=== PATIENT | female | born 1975 | race Caucasian/White ===

== ENCOUNTER 2018-08-08 17:50 | Emergency (ER) | payer MEDICAID ==
[2018-08-08] MEDS ORDERED: NS 1,000 ML IV ONE (18:06)
--- NOTE | 2018-08-08 18:16 | EDPHY ---
H & P Stated Complaint: rapid HR, jittery, jaundice Time Seen by Provider: 08/08/18 17:59 HPI/ROS: CHIEF COMPLAINT: Jittery, jaundice, palpitations HISTORY OF PRESENT ILLNESS: Patient is a 43-year-old female who comes to the emergency department complaining of feeling jittery and having palpitations and says she looks jaundice. She reports that about 6 months ago in [place] she was diagnosed with D Fragilis and was treated with a course of Flagyl. She states that when she took the antibiotics it made her feel jittery and anxious so she eventually stop taking them. She then noticed that she was having that reaction with any medication she took even multi vitamins. She is now off of all medications. She states that today she began feeling this way even without taking any medications. She reports that a few months ago when she noticed the jaundice and has slightly elevated liver tests she had an MRI of her abdomen that they told her was completely normal. She is not a heavy drinker. She denies abdominal pain. She feels slightly nauseous but no vomiting. No history of cardiac or pulmonary disease. Severity: Moderate Modifying factors: None REVIEW OF SYSTEMS: Constitutional: denies: chills, fever, recent illness, recent injury EENTM: denies: blurred vision, double vision, nose congestion Respiratory: denies: cough, shortness of breath Cardiac: denies: chest pain, irregular heart rate, lightheadedness, palpitations Gastrointestinal/Abdominal: See HPI Genitourinary: denies: dysuria, frequency, hematuria, pain Musculoskeletal: denies: joint pain, muscle pain Skin: denies: lesions, rash, jaundice, bruising Neurological: denies: headache, numbness, paresthesia, tingling, dizziness, weakness Hematologic/Lymphatic: denies: blood clots, easy bleeding, easy bruising Immunologic/allergic: denies: HIV/AIDS, transplant 10 systems reviewed and negative except as noted EXAM: GENERAL: Well-appearing, well-nourished and in no acute distress. HEAD: Atraumatic, normocephalic. EYES: Pupils equal round and reactive to light, extraocular movements intact, sclera appears slightly jaundice. ENT: TMs normal, nares patent, oropharynx clear without exudates. Moist mucous membranes. NECK: Normal range of motion, supple without lymphadenopathy or JVD. LUNGS: Breath sounds clear to auscultation bilaterally and equal. No wheezes rales or rhonchi. HEART: Regular rate and rhythm without murmurs, rubs or gallops. ABDOMEN: Soft, nontender, normoactive bowel sounds. No guarding, no rebound. No masses appreciated. BACK: No CVA tenderness, no spinal tenderness, step-offs or deformities EXTREMITIES: Normal range of motion, no pitting or edema. No clubbing or cyanosis. NEUROLOGICAL: Cranial nerves II through XII grossly intact. Normal speech, normal gait. 5/5 strength, normal movement in all extremities, normal sensation , normal reflexes PSYCH: Normal mood, normal affect. SKIN: Warm, dry, normal turgor, no visible rashes or lesions. Source: Patient Exam Limitations: No limitations - Personal History Current Tetanus/Diphtheria Vaccine: Yes Current Tetanus Diphtheria and Acellular Pertussis (TDAP): Yes - Medical/Surgical History Hx Asthma: No Hx Chronic Respiratory Disease: No Hx Diabetes: No Hx Cardiac Disease: No Hx Renal Disease: No Hx Cirrhosis: No Hx Alcoholism: No Hx HIV/AIDS: No Hx Splenectomy or Spleen Trauma: No Other PMH: asthma, - Family History Significant Family History: No pertinent family hx - Social History Smoking Status: Former smoker Alcohol Use: None Constitutional: Initial Vital Signs Temperature (C) 37.1 C 08/08/18 17:56 Heart Rate 118 H 08/08/18 17:56 Respiratory Rate 16 08/08/18 17:56 Blood Pressure 158/93 H 08/08/18 17:56 O2 Sat (%) 98 08/08/18 17:56 O2 Delivery Mode Room Air Allergies/Adverse Reactions: No Known Allergies Allergy (Unverified 08/08/18 17:55) Home Medications: Medication Instructions Recorded NK [No Known Home Meds] 08/08/18 Medical Decision Making - Diagnostics EKG Interpretation: An EKG obtained and was read and documented in trace view. Please see trace view for full reading and report. Sinus rhythm, no acute ischemic changes Imaging Results: Imaging Impressions Abdomen Ultrasound 08/08/18 18:06 Impression: 1. A single 4 mm gallbladder polyp. 2. No cholelithiasis or biliary ductal dilation. 3. Hepatic steatosis and mild hepatomegaly without definite focal lesions. 4. No ascites. Findings and recommendations discussed with Emergency Department physician, GURWINDER PICHARDO at 19:38 hour, 08/08/2018. Final report concurs with initial preliminary interpretation. Imaging: Discussed imaging studies w/ equine intern Radiologist ED Course/Re-evaluation: 8:14 p.m. Patient's lab work is completely normal. On re-evaluation she does not appear jaundice but has been tanning. Sclerae are clear in better lighting. She states that this is what always happens. She states that she has the symptoms any time she takes any type of pill or even vitamins or supplements. She has seen her truck bench mechanic and has been drinking celery juice which she thinks may be helping to some degree. She also [facility]. She declines further workup or testing this time and is eager to go home. Differential Diagnosis: Partial list of the Differential diagnosis considered include but were not limited to; anxiety, medication reaction, liver disease and although unlikely based on the history and physical exam, I also considered pancreatitis, biliary stone. I discussed these differential diagnoses and the plan with the patient as well as the usual and expected course. The patient understands that the diagnosis is provisional and that in medicine we are not always correct and that further workup is often warranted. Usual and customary warnings were given. All of the patient's questions were answered. The patient was instructed to return to the emergency department should the symptoms at all worsen or return, otherwise to followup with the physician as we discussed. - Data Points Laboratory Results: Laboratory Results 08/08/18 18:20 08/08/18 18:20 08/08/18 08/08/18 08/08/18 18:59 18:50 18:20 WBC RBC Hgb Hct MCV MCH MCHC RDW Plt Count MPV Neut % (Auto) Lymph % (Auto) [place] % (Auto) Eos % (Auto) Baso % (Auto) Nucleat RBC Rel Count Absolute Neuts (auto) Absolute Lymphs (auto) Absolute Monos (auto) Absolute Eos (auto) Absolute Basos (auto) Absolute Nucleated RBC Immature Gran % Immature Gran # D-Dimer 0.28 ug/mLFEU ug/mLFEU (0.00-0.50) Sodium Potassium Chloride Carbon Dioxide Anion Gap BUN Creatinine Estimated GFR Glucose Calcium Total Bilirubin Conjugated Bilirubin Unconjugated Bilirubin AST ALT Alkaline Phosphatase POC Troponin I 0.00 ng/mL ng/mL (0.00-0.08) Total Protein Albumin Lipase Urine Color COLORLESS Urine Appearance CLEAR Urine pH 7.0 (5.0-7.5) Ur Specific [place] 1.003 (1.002-1.030) Urine Protein NEGATIVE (NEGATIVE) Urine Ketones NEGATIVE (NEGATIVE) Urine Blood NEGATIVE (NEGATIVE) Urine Nitrate NEGATIVE (NEGATIVE) Urine Bilirubin NEGATIVE (NEGATIVE) Urine Urobilinogen NEGATIVE EU EU (0.2-1.0) Ur Leukocyte Esterase NEGATIVE (NEGATIVE) Urine RBC 1-3 /hpf /hpf (0-3) Urine WBC 0-1 /hpf /hpf (0-3) Ur Epithelial Cells TRACE /lpf /lpf (NONE-1+) Urine Glucose NEGATIVE (NEGATIVE) 08/08/18 08/08/18 18:20 18:20 WBC 8.38 10^3/uL 10^3/uL (3.80-9.50) RBC 4.95 10^6/uL 10^6/uL (4.18-5.33) Hgb 11.5 g/dL L g/dL (12.6-16.3) Hct 37.3 % L % (38.0-47.0) MCV 75.4 fL L fL (81.5-99.8) MCH 23.2 pg L pg (27.9-34.1) MCHC 30.8 g/dL L g/dL (32.4-36.7) RDW 16.4 % H % (11.5-15.2) Plt Count 261 10^3/uL 10^3/uL (150-400) MPV 10.9 fL fL (8.7-11.7) Neut % (Auto) 68.1 % % (39.3-74.2) Lymph % (Auto) 25.1 % % (15.0-45.0) [place] % (Auto) 4.9 % % (4.5-13.0) Eos % (Auto) 1.0 % % (0.6-7.6) Baso % (Auto) 0.5 % % (0.3-1.7) Nucleat RBC Rel Count 0.0 % % (0.0-0.2) Absolute Neuts (auto) 5.72 10^3/uL 10^3/uL (1.70-6.50) Absolute Lymphs (auto) 2.10 10^3/uL 10^3/uL (1.00-3.00) Absolute Monos (auto) 0.41 10^3/uL 10^3/uL (0.30-0.80) Absolute Eos (auto) 0.08 10^3/uL 10^3/uL (0.03-0.40) Absolute Basos (auto) 0.04 10^3/uL 10^3/uL (0.02-0.10) Absolute Nucleated RBC 0.00 10^3/uL 10^3/uL (0-0.01) Immature Gran % 0.4 % % (0.0-1.1) Immature Gran # 0.03 10^3/uL 10^3/uL (0.00-0.10) D-Dimer Sodium 137 mEq/L mEq/L (135-145) Potassium 3.8 mEq/L mEq/L (3.5-5.2) Chloride 103 mEq/L mEq/L (97-110) Carbon Dioxide 26 mEq/l mEq/l (22-31) Anion Gap 8 mEq/L mEq/L (6-14) BUN 9 mg/dL mg/dL (7-23) Creatinine 0.8 mg/dL mg/dL (0.6-1.0) Estimated GFR > 60 Glucose 91 mg/dL mg/dL (70-100) Calcium 9.1 mg/dL mg/dL (8.5-10.4) Total Bilirubin 0.2 mg/dL mg/dL (0.1-1.4) Conjugated Bilirubin 0.0 mg/dL mg/dL (0.0-0.5) Unconjugated Bilirubin 0.2 mg/dL mg/dL (0.0-1.1) AST 16 IU/L IU/L (14-46) ALT 16 IU/L IU/L (9-52) Alkaline Phosphatase 72 IU/L IU/L (38-126) POC Troponin I Total Protein 6.8 g/dL g/dL (6.3-8.2) Albumin 4.3 g/dL g/dL (3.5-5.0) Lipase 114 IU/L IU/L (23-300) Urine Color Urine Appearance Urine pH Ur Specific [place] Urine Protein Urine Ketones Urine Blood Urine Nitrate Urine Bilirubin Urine Urobilinogen Ur Leukocyte Esterase Urine RBC Urine WBC Ur Epithelial Cells Urine Glucose Medications Given: Discontinued Medications Sodium Chloride (Ns) 1,000 mls @ 0 mls/hr IV EDNOW ONE; Wide Open PRN Reason: Protocol Stop: 08/08/18 18:07 Last Admin: 08/08/18 18:24 Dose: 1,000 mls Point of Care Test Results: Chemistry 08/08/18 18:59 POC Troponin I 0.00 ng/mL ng/mL (0.00-0.08) Departure - Departure Disposition: Home, Routine, Self-Care Clinical Impression: Fatigue Qualifiers: Fatigue type: unspecified Qualified Code(s): R53.83 - Other fatigue Condition: Fair Instructions: Fatigue (ED) Referrals: NONE *PRIMARY CARE P,. [Primary Care Provider] - As per Instructions [facility],. [Clinic] - 1 day without fail (as planned)
[2018-08-08 18:37] LABS: PLATELET COUNT 261 10^3/uL (150-400)
[2018-08-08 19:45] VITALS: BP 126/79
--- NOTE | 2018-08-08 20:07 | CPEKG ---
Test Reason : OPEN Blood Pressure : / mmHG Vent. Rate : 067 BPM Atrial Rate : 068 BPM P-R Int : 111 ms QRS Dur : 094 ms QT Int : 426 ms P-R-T Axes : 066 082 067 degrees QTc Int : 450 ms Sinus rhythm Confirmed by Gurwinder Pichardo ([id number]) on 08/08/2018 8:06:32 PM Referred By: GURWINDER PICHARDO Confirmed By:Gurwinder Pichardo
--- NOTE | 2018-08-14 13:27 | CPEKG ---
Test Reason : OPEN Blood Pressure : / mmHG Vent. Rate : 067 BPM Atrial Rate : 068 BPM P-R Int : 111 ms QRS Dur : 094 ms QT Int : 426 ms P-R-T Axes : 066 082 067 degrees QTc Int : 450 ms Sinus rhythm Confirmed by Arcadio Herman ([id number]) on 08/14/2018 1:27:16 PM Referred By: GURWINDER PICHARDO Confirmed By:Arcadio Herman
== END 2018-08-08 20:41 | disposition home or self-care (01) ==
DX: R53.83 Other fatigue (principal); K82.4 Cholesterolosis of gallbladder; E86.9 Volume depletion, unspecified; K76.0 Fatty (change of) liver, not elsewhere classified; Z87.891 Personal history of nicotine dependence
CPT/HCPCS: 84484-ER